=== PATIENT | female | born 1950 ===

== ENCOUNTER 2016-08-10 08:03 | Day surgery (SDC) | payer MEDICARE, OTHER ==
[2016-08-06 08:40] VITALS: BMI 32.5
[2016-08-10] MEDS ORDERED: Sodium Chloride 0.9% 500 ML IV SCH (11:45)
[2016-08-10] MEDS ORDERED: Sodium Chloride 0.9% 500 ML IV ONE (12:50)
[2016-08-10 13:48] VITALS: O2SAT 100
[2016-08-10 16:12] VITALS: BP 113/52; PULSE 89; RESP 20; TEMP 97.7
--- NOTE | 2016-08-11 20:14 | CARDCATH ---
PROCEDURE DATE: 08/10/2016 PROCEDURES: 1. Left heart catheterization. 2. Coronary angiogram. CLINICAL INDICATIONS: 1. Dyspnea. 2. Hypertension. 3. Abnormal stress test. 4. Obesity. REFERRING PHYSICIAN: Dr. Benita Senior. PERFORMING PHYSICIAN: Dr. Nico Cueva. PROCEDURE: After informed consent, the patient was prepped and draped in the usual sterile fashion. Lidocaine 2% was given in the right groin for local anesthesia. Using micropuncture technique, 6-Fr ench sheath was introduced into right common femoral artery. Using the usual diagnostic catheters, l eft heart catheterization and coronary angiogram was performed. The patient tolerated the procedure well. FINDINGS: 1. Left main coronary artery is patent. 2. Proximal and mid LAD is patent. Diagonal branches are patent; however, distal LAD has a diffuse 5 0% narrowing. 3. Left circumflex and obtuse marginal branches are patent. 4. Right coronary artery is dominant and patent. 5. LV ejection fraction is approximately 60%. No wall motion abnormality is noted. EDP 18. No grad ient across the aortic valve. IMPRESSION: 1. 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 2. Normal ejection fraction. RECOMMENDATIONS: Recommend aggressive medical management, including risk factor modification. Nico Cueva MD cc: [id number] TT: 08/11/2016 20:14:27 ln
== END 2016-08-10 14:45 | disposition home or self-care (01) ==
LOC: C.CATHLAB 08:03
PROVIDERS: ATTEND Internal Medicine Cardiovascular Disease
DX: R06.00 Dyspnea, unspecified (principal); I10 Essential (primary) hypertension; R94.39 Abnormal result of other cardiovascular function study; E66.9 Obesity, unspecified
CPT/HCPCS: 93458; C1760; C1769; C1887; J7040